=== PATIENT | female | born 1960 | race Caucasian/White ===

== ENCOUNTER 2017-01-30 09:19 | Emergency (ER) | payer MEDICARE ==
[~2017-01-30] VITALS: Ht 172.7 cm; Wt 85.0 kg
[~2017-01-30 09:19] MED LIST: CIPR-9 PO; LEVO150T7 PO; METF500T PO; METO25TA3 PO; PRAM0.5T PO
[2017-01-30 09:21] VITALS: BP 221/109; PULSE 90; RESP 18; TEMP 97.9; O2SAT 100
[2017-01-30] MEDS ORDERED: SODIUM CHLOR 0.9% 1000 ML INJ 1,000 ML IV ONE ×2 (09:32→09:45)
[2017-01-30] MEDS ORDERED: LISI-515 PO (09:38)
[2017-01-30] MEDS ORDERED: SODIUM CHLORIDE 0.9% FLUSH 10 ML FLUSH IVF PRN (09:45)
[2017-01-30] MEDS ORDERED: DEXAMETHASONE SOD PHOS 20 MG/5 ML VIAL IV PUSH ONE (09:45)
[2017-01-30] MEDS ORDERED: diphenhydrAMINE HCL 50 MG/ML VIAL IVP ONE (09:45)
[2017-01-30] MEDS ORDERED: METOCLOPRAMIDE HCL 10 MG/2 ML VIAL IVP ONE (09:45)
[2017-01-30] MEDS ORDERED: hydrALAZINE HCL 20 MG/ML VIAL IV PUSH ONE (09:45)
--- NOTE | 2017-01-30 09:50 | PD ---
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 Reports that her oral surgeon is Dr. 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 Reports that with her adverse affects from radiation treatments, she needs 20 hyperbaric treatments before dental work is done and another 10 treatments after her dental work. Patient reports that ever since her first hyperbaric treatments on January 02, 2017, she has felt "off and has had a headache." Patient reports that she has had a constant posterior headache since January 02. Patient reports that she was supposed to receive hyperbaric treatments today, reports that because she was not feeling well, her treatment was canceled and she was told to go to the ER for evaluation. Patient denies any fevers or chills, reports that she does feel nauseous with her headaches. Patient reports that her headaches are not the worst headache of her life. Denies fever/chills. Denies fall/trauma to head/neck. Reports no neck pain. PFSH Past Medical History Narrative Medical osteoradionecrosis of the maxilla, hypertension, "missing discs" Hypertension: Yes ?: Not Past Surgical History Surgical History: No Previous Surgery Social History Alcohol Use: No Tobacco Use: No Substance Use: No Allergies-Medications (Allergen,Severity, Reaction): Coded Allergies: Tetracyclines (Verified Adverse Reaction, Unknown, vomiting, 01/30/17) Uncoded Allergies: All Pain Meds (Adverse Reaction, Mild, extreme drowiness, 01/02/17) Reported Meds & Prescriptions Reported Meds & Active Scripts Active Reported Lisinopril 20 Mg Tab 20 Mg PO DAILY Metformin (Metformin HCl) 500 Mg Tab 500 Mg PO BIDPC Pramipexole (Pramipexole Dihydrochloride) 0.5 Mg Tab 0.5 Mg PO DAILY Metoprolol Tartrate 25 Mg Tab 25 Mg PO DAILY Levothyroxine (Levothyroxine Sodium) 150 Mcg Tab 150 Mcg PO DAILY Review of Systems General / Constitutional: No: Fever, Chills Eyes: No: Diploplia, Blind Spots, Visual changes HENT: Positive: Headaches, Lightheadedness, No: Neck Pain Cardiovascular: No: Chest Pain or Discomfort, Palpitations, Irregular Rhythm Respiratory: No: Cough, Shortness of Breath Gastrointestinal: No: Abdominal Pain Genitourinary: No: Dysuria Musculoskeletal: No: Pain Skin: No Rash Neurologic: No: Weakness Psychiatric: No: Depression Endocrine: No: Polydipsia Hematologic/Lymphatic: No: Easy Bruising Physical Exam Narrative GENERAL: Mild distress SKIN: Focused skin assessment warm/dry. HEAD: Atraumatic. Normocephalic. EYES: Pupils equal and round. No scleral icterus. No injection or drainage. ENT: No nasal bleeding or discharge. Mucous membranes pink and moist. NECK: Trachea midline. No JVD. CARDIOVASCULAR: Regular rate and rhythm. No murmur appreciated. RESPIRATORY: No accessory muscle use. Clear to auscultation. Breath sounds equal bilaterally. GASTROINTESTINAL: Abdomen soft, non-tender, nondistended. Hepatic and splenic margins not palpable. MUSCULOSKELETAL: No obvious deformities. No clubbing. No cyanosis. No edema. NEUROLOGICAL: Awake and alert. No obvious cranial nerve deficits. Motor grossly within normal limits. Normal speech. CN 2-12 grossly intact with no neurological deficits PSYCHIATRIC: Appropriate mood and affect; insight and judgment normal. Data Data Last Documented VS Vital Signs Date Time Temp Pulse Resp B/P (MAP) Pulse Ox O2 Delivery O2 Flow Rate FiO2 01/30/17 10:25 85 20 174/82 (112) 98 Room Air 01/30/17 09:21 97.9 Orders Orders Complete Blood Count With Diff (01/30/17 09:32) Comprehensive Metabolic Panel (01/30/17 09:32) Prothrombin Time / Inr (Pt) (01/30/17 09:32) Act Partial Throm Time (Ptt) (01/30/17 09:32) Ct Brain W/O Iv Contrast(Rout) (01/30/17 09:32) Ecg Monitoring (01/30/17 09:32) Iv Access Insert/Monitor (01/30/17 09:32) Oximetry (01/30/17 09:32) Sodium Chloride 0.9% Flush (Ns Flush) (01/30/17 09:45) Diphenhydramine Inj (Benadryl Inj) (01/30/17 09:45) Metoclopramide Inj (Reglan Inj) (01/30/17 09:45) Sodium Chlor 0.9% 1000 Ml Inj (Ns 1000 M (01/30/17 09:32) Dexamethasone Inj (Decadron Inj) (01/30/17 09:45) Sodium Chlor 0.9% 1000 Ml Inj (Ns 1000 M (01/30/17 09:45) Hydralazine Inj (Apresoline Inj) (01/30/17 09:45) Ketorolac Inj (Toradol Inj) (01/30/17 11:15) Labs Laboratory Tests Test 01/30/17 09:45 White Blood Count 8.9 TH/MM3 Red Blood Count 5.07 MIL/MM3 Hemoglobin 15.4 GM/DL Hematocrit 46.4 % Mean Corpuscular Volume 91.6 FL Mean Corpuscular Hemoglobin 30.4 PG Mean Corpuscular Hemoglobin Concent 33.2 % Red Cell Distribution Width 14.7 % Platelet Count 205 TH/MM3 Mean Platelet Volume 8.7 FL Neutrophils (%) (Auto) 61.2 % Lymphocytes (%) (Auto) 27.8 % Monocytes (%) (Auto) 6.1 % Eosinophils (%) (Auto) 4.0 % Basophils (%) (Auto) 0.9 % Neutrophils # (Auto) 5.4 TH/MM3 Lymphocytes # (Auto) 2.5 TH/MM3 Monocytes # (Auto) 0.5 TH/MM3 Eosinophils # (Auto) 0.4 TH/MM3 Basophils # (Auto) 0.1 TH/MM3 CBC Comment DIFF FINAL Differential Comment Prothrombin Time 10.0 SEC Prothromb Time International Ratio 1.0 RATIO Activated Partial Thromboplast Time 26.8 SEC Blood Urea Nitrogen 11 MG/DL Creatinine 0.74 MG/DL Random Glucose 125 MG/DL Total Protein 8.4 GM/DL Albumin 4.0 GM/DL Calcium Level 9.4 MG/DL Alkaline Phosphatase 105 U/L Aspartate Amino Transf (AST/SGOT) 12 U/L Alanine Aminotransferase (ALT/SGPT) 19 U/L Total Bilirubin 0.3 MG/DL Sodium Level 138 MEQ/L Potassium Level 4.5 MEQ/L Chloride Level 107 MEQ/L Carbon Dioxide Level 25.3 MEQ/L Anion Gap 6 MEQ/L Estimat Glomerular Filtration Rate 81 ML/MIN MDM Medical Decision Making Medical Screen Exam Complete: Yes Emergency Medical Condition: Yes Medical Record Reviewed: Yes Interpretation(s) Vital Signs Date Time Temp Pulse Resp B/P (MAP) Pulse Ox O2 Delivery O2 Flow Rate FiO2 01/30/17 09:21 97.9 90 18 221/109 (146) 100 Differential Diagnosis osteoradionecrosis of the maxilla, cephalgia, accelerated hypertension, ICH, electrolyte abnormality Narrative Course During the course of the patients emergency department visit, the patients history, examination, and differential diagnosis were reviewed with the patient. The patient was placed on a advertising sales agent with oximetry and frequent blood pressure monitoring. The patient had 1 20 guage IV access obtained and blood work sent for analysis. The patient was initially provided IVF, IV Dexamethasone, IV reglan and IV benadryl I did review case with Dr. Castellano, patient's primary care doctor, reports that patient has been receiving daily hyperbaric treatments, and patient has never had a complaint of headache in the past. Plan to treat for cephalgia. The patients laboratory studies were reviewed and remarkable for : CBC & BMP Diagram 01/30/17 09:45 Total Protein 8.4 H, Albumin 4.0, Calcium Level 9.4, Alkaline Phosphatase 105, Aspartate Amino Transf (AST/SGOT) 12 L, Alanine Aminotransferase (ALT/SGPT) 19, Total Bilirubin 0.3 Radiology studies were reviewed and remarkable for: Last Impressions Head CT 01/30/17 0932 Signed Impressions: Service Date/Time: Monday, January 30, 2017 09:52 - CONCLUSION: No acute intracranial disease. Manuel Hair MD Patient re-evaluated, patient feeling much better at this time. I reviewed all labs and studies with patient with patient in detail. She will follow up with her pcp and will return to ER as needed. Diagnosis Primary Impression: Cephalgia Qualified Codes: R51 - Headache Patient Instructions: General Instructions Additional Instructions: Please provide patient with a copy of their lab work and studies at discharge* * Please follow up with your primary care doctor in 2-3 days Return to the ER if symptoms worsen or progress Return to the ER as needed Disposition: 01 DISCHARGE HOME Condition: Stable Deepali Mejia DO Jan 30, 2017 09:50
[2017-01-30 09:59] VITALS: O2SAT 98
[2017-01-30 10:11] LABS: AUTOMATED NEUTROPHIL # 5.4 TH/MM3 (1.8-7.7); BASOPHIL # 0.1 TH/MM3 (0-0.2); BASOPHIL % 0.9 % (0.0-2.0); EOSINOPHIL # 0.4 TH/MM3 (0-0.4); HEMATOCRIT 46.4 % (35.0-46.0); HEMO FLAGS DIFF FINAL; LYMPH % 27.8 % (9.0-44.0); LYMPHOCYTE # 2.5 TH/MM3 (1.0-4.8); MEAN CELL VOLUME 91.6 FL (80.0-100.0); MEAN CORPUSCULAR HEMOGLOBIN 30.4 PG (27.0-34.0); MEAN CORPUSCULAR HGB CONC 33.2 % (32.0-36.0); MONO % 6.1 % (0.0-8.0); NEUT % 61.2 % (16.0-70.0); PLATELET COUNT 205 TH/MM3 (150-450); RED BLOOD COUNT 5.07 MIL/MM3 (4.00-5.30); RED CELL DISTRIBUTION WIDTH 14.7 % (11.6-17.2); WHITE BLOOD COUNT 8.9 TH/MM3 (4.0-11.0)
--- NOTE | 2017-01-30 10:15 | RADRPT ---
EXAM DATE/TIME: 01/30/2017 09:52 [facility] COMPARISON: No previous studies available for comparison. INDICATIONS : Headache with ear ache . RADIATION DOSE: 33.52 CTDIvol (mGy) MEDICAL HISTORY : Diabetes mellitus type 2. SURGICAL HISTORY : None. ENCOUNTER: Initial ACUITY: 3 days PAIN SCALE: 10/10 LOCATION: Bilateral cranial TECHNIQUE: Multiple contiguous axial images were obtained of the head. Using automated exposure control and adj ustment of the mA and/or kV according to patient size, radiation dose was kept as low as reasonably a chievable to obtain optimal diagnostic quality images. DICOM format image data is available electro nically for review and comparison. FINDINGS: CEREBRUM: The ventricles are normal for age. No evidence of midline shift, mass lesion, hemorrhage or acute in farction. No extra-axial fluid collections are seen. POSTERIOR FOSSA: The cerebellum and brainstem are intact. The 4th ventricle is midline. The cerebellopontine angle i s unremarkable. EXTRACRANIAL: The visualized portion of the orbits is intact. Left frontal/ethmoid osteoma. SKULL: The calvaria is intact. No evidence of skull fracture. CONCLUSION: No acute intracranial disease. Manuel Hair MD on January 30, 2017 at 10:00 Board Certified Radiologist. This report was verified electronically.
[2017-01-30 10:21] LABS: APTT (PATIENT) 26.8 SEC (24.3-30.1)
[2017-01-30 10:25] VITALS: BP 174/82; PULSE 85; RESP 20; O2SAT 98
[2017-01-30 10:43] LABS: ALT (GPT) 19 U/L (10-53); ANION GAP 6 MEQ/L (5-15); AST (GOT) 12 U/L (15-37); BICARBONATE 25.3 MEQ/L (21.0-32.0); BLOOD UREA NITROGEN 11 MG/DL (7-18); CHLORIDE 107 MEQ/L (98-107); GLOMERULAR FILTRATION RATE 81 ML/MIN (>89); POTASSIUM 4.5 MEQ/L (3.5-5.1); SODIUM (NA) 138 MEQ/L (136-145)
[2017-01-30 10:45] LABS: ALKALINE PHOSPHATASE 105 U/L (45-117); TOTAL BILIRUBIN ADULT 0.3 MG/DL (0.2-1.0)
[2017-01-30] MEDS ORDERED: KETOROLAC TROMETHAMINE 30 MG/ML (IVP) VIAL IV PUSH ONE (11:15)
== END 2017-01-30 12:33 | disposition home or self-care (01) ==
LOC: NEPD 09:19
DX: R51 Headache (principal); R42 Dizziness and giddiness; I10 Essential (primary) hypertension; Z79.899 Other long term (current) drug therapy; Z88.8 Allergy status to other drugs, medicaments and biological substances
CPT/HCPCS: 70450; 80053; 85025; 85610; 85730; 96361; 96374; 96375; 99285; J1100; J1200; J2765; J7030